=== PATIENT | female | born 1980 | race Hispanic/Latino ===

== ENCOUNTER 2017-08-03 21:29 | Emergency (ER) | payer OTHER ==
[2017-08-03] MEDS ORDERED: Meperidine PF 50 MG/ML Syringe IM ONE (22:07)
[2017-08-03] MEDS ORDERED: hydrOXYzine HCl 50 MG/ML SDV IM ONE (22:08)
--- NOTE | 2017-08-03 22:14 | EDM.PDOC ---
ED HPI GENERAL MEDICAL PROBLEM - General Chief Complaint: General Stated Complaint: Right knee injury Time Seen by Provider: 08/03/17 21:50 Source of Information: Reports: Patient History Limitations: Reports: No Limitations - History of Present Illness INITIAL COMMENTS - FREE TEXT/NARRATIVE: Patient is a 37-year-old female who was brought in by her to the ER for evaluation of right knee pain patient is states that she slipped on the ice at work tonight around 8:50 PM she complains of about a 5-6 out of 10 pain over the patella and soft tissue she also complains of pain in the proximal right femur. Onset: Today, Sudden Duration: Minutes:, Getting Worse Quality: Reports: Throbbing Severity: Moderate Improves with: Reports: None Worsens with: Reports: Cold Therapy Context: Reports: Trauma Right Knee Pain Score (Numeric/FACES): 6 - Related Data Allergies Allergy/AdvReac Type Severity Reaction Status Date / Time No Known Allergies Allergy Verified 08/03/17 21:31 Home Meds: Home Meds Ibuprofen 600 mg PO Q6HR PRN 08/03/17 [History] Social & Family History - Tobacco Use Smoking Status *Q: Never Smoker Second Hand Smoke Exposure: No - Caffeine Use Caffeine Use: Reports: Coffee - Recreational Drug Use Recreational Drug Use: No ED ROS GENERAL - Review of Systems Review Of Systems: See Below Constitutional: Reports: No Symptoms HEENT: Reports: No Symptoms Respiratory: Reports: No Symptoms Cardiovascular: Reports: No Symptoms Endocrine: Reports: No Symptoms GI/Abdominal: Reports: No Symptoms : Reports: No Symptoms Musculoskeletal: Reports: Leg Pain, Joint Pain (Right knee) Skin: Reports: Bruising (Right knee) Neurological: Reports: No Symptoms Psychiatric: Reports: No Symptoms Hematologic/Lymphatic: Reports: No Symptoms ED EXAM, GENERAL - Physical Exam Exam: See Below Exam Limited By: No Limitations General Appearance: Alert, WD/WN, No Apparent Distress Ears: Normal External Exam, Normal Canal, Hearing Grossly Normal, Normal TMs Ear Exam: Bilateral Ear: Auricle Normal, Canal Normal, TM normal Nose: Normal Inspection, Normal Mucosa, No Blood Throat/Mouth: Normal Inspection, Normal Lips, Normal Teeth, Normal Gums, Normal Oropharynx, Normal Voice, No Airway Compromise Head: Atraumatic, Normocephalic Neck: Normal Inspection, Supple, Non-Tender, Full Range of Motion Respiratory/Chest: No Respiratory Distress, Lungs Clear, Normal Breath Sounds, No Accessory Muscle Use, Chest Non-Tender Cardiovascular: Normal Peripheral Pulses, Regular Rate, Rhythm, No Edema, No Gallop, No JVD, No Murmur, No Rub GI/Abdominal: Normal Bowel Sounds, Soft, Non-Tender, No Organomegaly, No Distention, No Abnormal Bruit, No Mass (Female) Exam: Deferred Rectal (Female) Exam: Deferred Back Exam: Normal Inspection, Full Range of Motion, NT Extremities: Leg Pain (Right), Limited Range of Motion (Right) Neurological: Alert, Oriented, CN II-XII Intact, Normal Cognition, Normal Gait, Normal Reflexes, No Motor/Sensory Deficits Psychiatric: Normal Affect, Normal Mood Skin Exam: Warm, Dry, Intact, Normal Color, No Rash, Ecchymosis (Right knee) Lymphatic: No Adenopathy Course - Vital Signs Last Recorded V/S: Last Vital Signs Temp 97.4 F 08/03/17 21:31 Pulse 72 08/03/17 21:31 Resp 16 08/03/17 21:31 BP 113/62 08/03/17 21:31 Pulse Ox 98 08/03/17 21:31 - Orders/Labs/Meds Orders: Active Orders 24 hr Category Date Time Status Knee 3V Rt [CR] Stat Exams 08/03/17 22:04 Ordered Meperidine [Demerol] Med 08/03/17 22:07 Once 50 mg IM ONETIME ONE hydrOXYzine HCl [Vistaril] Med 08/03/17 22:08 Once 25 mg IM ONETIME ONE Departure - Departure Time of Disposition: 22:54 Disposition: Home, Self-Care 01 Condition: Good Clinical Impression: Right knee injury - Discharge Information Referrals: Angelina Smith NP [Primary Care Provider] - Care Plan Goals: Patient will be sent home with pain medication Tw[place] 5// one tablet every 6 hours if needed for pain control if continue with pain we will proceed with MRI of the knee x-ray revealed no fracture at this time - My Orders Last 24 Hours: My Active Orders 08/03/17 22:04 Knee 3V Rt [CR] Stat 08/03/17 22:07 Meperidine [Demerol] 50 mg IM ONETIME ONE 08/03/17 22:08 hydrOXYzine HCl [Vistaril] 25 mg IM ONETIME ONE - Assessment/Plan Last 24 Hours: My Active Orders 08/03/17 22:04 Knee 3V Rt [CR] Stat 08/03/17 22:07 Meperidine [Demerol] 50 mg IM ONETIME ONE 08/03/17 22:08 hydrOXYzine HCl [Vistaril] 25 mg IM ONETIME ONE
[2017-08-03] MEDS ORDERED: Acetaminophen/HYDROcodone 325-5 MG Tab PO ONE (22:49)
== END 2017-08-03 23:30 | disposition home or self-care (01) ==
LOC: LL.ED 21:29
DX: S80.01XA Contusion of right knee, initial encounter (principal); W00.0XXA Fall on same level due to ice and snow, initial encounter
CPT/HCPCS: 73552; 73562; 96372; 99283; J2175; J3410

== ENCOUNTER 2017-11-25 04:58 | Emergency (ER) | payer BC, OTHER ==
[2017-11-25] MEDS ORDERED: Sodium Chloride 0.9% 10 ML Syringe FLUSH PRN (05:24)
--- NOTE | 2017-11-25 05:24 | EDM.PDOC ---
ED HPI GENERAL MEDICAL PROBLEM - General Chief Complaint: General Stated Complaint: Light headness and dizziness Time Seen by Provider: 11/25/17 05:15 Source of Information: Reports: Patient, EMS, EMS Notes Reviewed, Old Records ( [facility] chart/EMR) History Limitations: Reports: No Limitations - History of Present Illness INITIAL COMMENTS - FREE TEXT/NARRATIVE: Patient was brought to the emergency room via ambulance with EMT/basic transfer with no treatment in route. At about 23:00 hours this evening the patient began experiencing some intermittent dizziness, nausea, and bilateral frontal headaches with no history of fall, injury, diplopia, visual changes, paresthesias, neurological deficits, or other complaints or injuries. She was able to continue her work until about 3 AM this morning. Patient does have a history of headaches in the past with additional history of anemia secondary to dysfunctional uterine bleeding as below. The patient denies any chest pain/ pressure, heart flutter, orthostasis, orthopnea, diaphoresis, paresthesias, recent decreased exercise tolerance, or any other anginal-type symptoms. No recent history of abdominal pain, heartburn, nausea, diarrhea, melena, gross hematochezia, or any food intolerance, including fatty foods, etc.. She denies any colic, gross hematuria, or UTI symptoms. The patient also denies any recent fever, cough, wheezing, dyspnea, etc.. Onset: Today, Gradual Onset Date: 11/24/17 Onset Time: 23:00 Duration: Getting Worse, Intermittent Quality: Reports: Same as Previous Episode, Throbbing Severity: Mild Improves with: Reports: Rest Worsens with: Reports: Movement Context: Reports: Other (As above). Denies: Sick Contact, Trauma Associated Symptoms: Reports: Headaches, Nausea/Vomiting (No emesis). 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 Denies: Allergic Rhinitis, Cataract, Glaucoma, Hard of Hearing, Macular Degeneration, Retinal Detachment Other HEENT History: She wears glasses Cardiovascular History: Reports: None. Denies: Afib, Aneurysm, Arrhythmia, Blood Clots/VTE/DVT, CAD, Heart Murmur, High Cholesterol, Hypertension, PA, PVD , Syncope Respiratory History: Reports: Intubation, Previous. Denies: Asthma, COPD, Intubation, Difficult, PE, Pneumothorax, Sleep Apnea Gastrointestinal History: Reports: None, Cholelithiasis. Denies: Celiac Disease , Fecal Incontinence, Gastritis, GERD, GI Bleed, Hepatitis, Irritable Bowel Syndrome, Jaundice, Pancreatitis, PUD Genitourinary History: Reports: None. Denies: Acute Renal Failure, Chronic Renal Insuffiency, Renal Calculus, STD, Urinary Incontinence, UTI, Recurrent YOUTH ADVOCATE History: Reports: Dysfunctional Uterine Bleeding, Fibroids, . Denies: Endometriosis, Spontaneous : 4 Para: 4 LMP (Approximate): Unknown Other OB/BYN History: Menopause secondary to dysfunctional uterine bleeding. C- sections 4 otherwise, Full term deliveries without complications during pregnancies or deliveries. Fibrocystic breast disease. Musculoskeletal History: Reports: None. Denies: Amputation, Arthritis, Back Pain, Chronic, Fracture, Fibromyalgia, Gout, Neck Pain, Chronic, Osteoarthritis , RA, SLE Neurological History: Reports: Headaches, Chronic. Denies: Cerebral Aneurysms, Concussion, CVA, Head Trauma, Migraines, MS, Parkinson's, Seizure, TIA Psychiatric History: Reports: None. Denies: Abuse, Victim of, ADD, ADHD, Addiction, Anxiety, Depression, Psych Hospitalization(s), PTSD, Suicide Attempt , Suicidal Ideation Endocrine/Metabolic History: Reports: Obesity/BMI 30+. Denies: Diabetes, Gestational, Diabetes, Type I, Diabetes, Type II, Diabetes Mellitus, Type 3c, Hypothyroidism, IDDM Hematologic History: Reports: Anemia, Iron Deficiency, Other (See Below). Denies: Blood Transfusion(s) Other Hematologic History: Anemia secondary to dysfunctional uterine bleeding Immunologic History: Reports: None. Denies: AIDS, HIV, SLE Oncologic (Cancer) History: Reports: None. Denies: Basal Cell Carcinoma, Hodgkin's Lymphoma, Leukemia, Lymphoma, Malignant Melanoma, Non-Hodgkin's Lymphoma, Squamous Cell Carcinoma Dermatologic History: Reports: None. Denies: Eczema, Psoriasis - Infectious Disease History Infectious Disease History: Reports: None. Denies: C-Difficile, Chicken Pox, Measles, Meningitis, Mononucleosis, MRSA, Mumps, Pertussis (Whooping Cough), Rheumatic Fever, Rubella, Scarlet Fever, Shingles, VRE - Past Surgical History Head Surgeries/Procedures: Reports: None HEENT Surgical History: Reports: Oral Surgery, Other (See Below). Denies: Adenoidectomy, Eye Surgery, Laser Surgery, LASIK, Myringotomy w Tube(s), Naso- Sinus Surgery, Tonsillectomy Other HEENT Surgeries/Procedures: [place] teeth extraction 4 in May 2017 Cardiovascular Surgical History: Reports: None. Denies: Varicose Respiratory Surgical History: Reports: None. Denies: Thoracentesis GI Surgical History: Reports: Cholecystectomy, Other (See Below). Denies: Appendectomy, Colonoscopy, EGD, Hernia, Abdominal, Hernia, Inguinal, Hernia Repair/Other Other GI Surgeries/Procedures: Open cholecystectomy at 5 months gestation in 2002 Female Surgical History: Reports: Breast Biopsy, Section, Hysterectomy, Tubal Ligation, Other (See Below). Denies: D&C, Salpingo- Oophorectomy Other Female Surgeries/Procedures: Bilateral tubal ligation 2006. Complete hysterectomy secondary to dysfunctional uterine bleeding in 2015. Left breast cyst aspiration in 2016. Fine-needle aspiration biopsy of the right breast on 10/02/02 with subsequent excision of a benign right breast mass on 02/18/03. Endocrine Surgical History: Reports: None. Denies: Thyroid Biopsy Neurological Surgical History: Reports: None. Denies: C-Spine, Discectomy, Laminectomy, Lumbar Spine, Sacral Spine, Spinal Fusion, Vertebroplasty Musculoskeletal Surgical History: Reports: None. Denies: Arthroscopic Procedure , Carpal Tunnel, Ganglion Cyst, Joint Replacement, ORIF, Shoulder Surgery Oncologic Surgical History: Reports: None Dermatological Surgical History: Reports: None - Past Imaging History Past Imaging History: Reports: Ultrasound (OB ultrasounds) Social & Family History - Tobacco Use Smoking Status *Q: Never Smoker Tobacco Use Within Last Twelve Months: No Used Tobacco, but Quit: No Smoking Cessation Information Provided To Patient: No Second Hand Smoke Exposure: No Second Hand Smoke Education Provided: No - Caffeine Use Caffeine Use: Reports: Coffee (1cup 2 times per week), Soda (1 soda 3 times per week), Tea (1 glass per day). Denies: Energy Drinks - Alcohol Use Alcohol Use History: No Days Per Week of Alcohol Use: 0 Number of Drinks Per Day: 0 Number of Drinks Per Day Comment: No previous DWIs, problems with alcohol abuse , etc. Total Drinks Per Week: 0 Alcohol Use in Last Twelve Months: No - Recreational Drug Use Recreational Drug Use: No Drug Use in Last 12 Months: No Recreational Drug Type: Denies: Amphetamines (Speed), Cocaine, Heroin, Inhalants (Glues, Solvents, Aerosols), LSD (Acid), Marijuana/Hashish, Methamphetamine, Morphine, Oxycodone - Sexual History Sexual History: Reports: Single Partner - Living Situation & Occupation Living situation: Reports: (April 1996. 4 children), with Family Occupation: Employed ([employer]) ED ROS GENERAL - Review of Systems Review Of Systems: ROS reveals no pertinent complaints other than HPI. ED EXAM, GENERAL - Physical Exam Exam: See Below Exam Limited By: No Limitations General Appearance: Alert, WD/WN, No Apparent Distress Eye Exam: Bilateral Eye: EOMI, Normal Fundi, Normal Inspection (No nystagmus), PERRL Ears: Normal External Exam, Normal Canal, Hearing Grossly Normal, Normal TMs, Other (Vertigo with head movement) Nose: Normal Inspection, Normal Mucosa, No Blood Throat/Mouth: Normal Inspection, Normal Lips, Normal Teeth, Normal Gums, Normal Oropharynx, Normal Voice, No Airway Compromise. No: Dysphagia, Perioral Cyanosis Head: Atraumatic, Normocephalic. No: Facial Swelling, Facial Tenderness, Sinus Tenderness Neck: Normal Inspection, Supple, Non-Tender, Full Range of Motion. No: Carotid Bruit, Lymphadenopathy (L), Lymphadenopathy (R), Thyromegaly Respiratory/Chest: No Respiratory Distress, Lungs Clear, Normal Breath Sounds, No Accessory Muscle Use, Chest Non-Tender. No: Pleural Rub, Retractions Cardiovascular: Normal Peripheral Pulses, Regular Rate, Rhythm, No Edema, No Gallop, No JVD, No Murmur, No Rub. No: Gallop/S3, Gallop/S4, Friction Rub Peripheral Pulses: 2+: Radial (L), Radial (R) GI/Abdominal: Normal Bowel Sounds, Soft, Non-Tender, No Organomegaly, No Distention, No Abnormal Bruit, No Mass, Other (obese). No: Guarding (Female) Exam: Deferred Rectal (Female) Exam: Deferred Back Exam: Normal Inspection, Full Range of Motion. No: CVA Tenderness (L), CVA Tenderness (R) Extremities: Normal Inspection, Normal Range of Motion, Non-Tender, No Pedal Edema, Normal Capillary Refill. No: Freddy's Sign Neurological: Alert, Oriented, CN II-XII Intact, Normal Cognition, Normal Gait, No Motor/Sensory Deficits, Other (No Clinical orthostasis) Psychiatric: Normal Affect, Normal Mood Skin Exam: Warm, Dry, Intact, Normal Color, No Rash. No: Diaphoretic, Pallor, Wound/Incision Lymphatic: No Adenopathy EKG INTERPRETATION EKG Date: 11/25/17 Time: 04:57 Rhythm: NSR Rate (Beats/Min): 70 [place]: Normal (Neutral cardiac axis) P-Wave: Present QRS: Normal (QRS interval 0.09 seconds) ST-T: Normal QT: Normal [place]/PQ Interval: 0.17 seconds Comparison: NA - No Prior EKG EKG Interpretation Comments: No acute ischemic changes Course - Vital Signs Last Recorded V/S: Last Vital Signs Temp 36.7 C 11/25/17 05:11 Pulse 68 11/25/17 05:24 Resp 18 11/25/17 05:24 BP 138/72 11/25/17 05:24 Pulse Ox 100 11/25/17 05:24 Vital Signs - 24 hr 11/25/17 11/25/17 05:11 05:24 Temperature [ 36.7 C Temporal] Pulse, 71 68 Peripheral [ Right Pulse Oximetry] Respiratory 16 18 Rate Blood Pressure 128/75 138/72 [Right Upper Arm] O2 Sat by Pulse 100 100 Oximetry - Orders/Labs/Meds Orders: Active Orders 24 hr Category Date Time Status Cardiac Monitoring [RC] . DIRECTED Care 11/25/17 05:24 Active EKG Documentation Completion [RC] ASDIRECTED Care 11/25/17 05:24 Active Peripheral IV Care [RC] . DIRECTED Care 11/25/17 05:24 Active Pulse Oximetry [RC] CONTINUOUS Care 11/25/17 05:24 Active Up With Assistance [RC] PFP Care 11/25/17 05:24 Active Vital Signs [RC] PFP Care 11/25/17 05:24 Active Nothing per Oral Now Diet [DIET] Diet 11/25/17 Breakfast Active Sodium Chloride 0.9% [Saline Flush] Med 11/25/17 05:24 Active 10 ml FLUSH ASDIRECTED PRN Obtain Past Medical Record [OM.PC] Urgent Oth 11/25/17 05:24 Active Peripheral IV Insertion Adult [OM.PC] Stat Oth 11/25/17 05:24 Ordered Resuscitation Status Stat Resus Stat 11/25/17 05:24 Ordered EKG 12 Lead [EK] Stat Ther 11/25/17 05:24 Ordered Medication Orders Sodium Chloride (Saline Flush) 10 ml FLUSH ASDIRECTED PRN PRN Reason: Keep Vein Open Labs: Laboratory Tests 11/25/17 11/25/17 11/25/17 Range/Units 05:15 05:15 05:15 WBC 6.4 (4.0-10.2) K/uL RBC 4.84 (3.77-5.09) M/uL Hgb 12.8 (11.7-15.5) g/dL Hct 39.1 (34.0-46.0) % MCV 80.8 L (84.0-98.0) fL MCH 26.4 L (28.2-33.3) pg MCHC 32.7 (31.7-36.0) g/dL RDW 14.2 H (11.2-14.1) % Plt Count 189 (150-350) K/uL Neut % (Auto) 50.0 (45.0-80.0) % Lymph % (Auto) 33.3 (10.0-50.0) % [place] % (Auto) 9.5 (2.0-14.0) % Eos % (Auto) 6.6 H (0.0-5.0) % Baso % (Auto) 0.6 (0.0-2.0) % Neut # (Auto) 3.20 (1.40-7.00) K/uL Lymph # (Auto) 2.13 (0.50-3.50) K/uL [place] # (Auto) 0.61 (0.00-1.00) K/uL Eos # (Auto) 0.42 (0.00-0.50) K/uL Baso # (Auto) 0.04 (0.00-0.20) K/uL PT 10.0 (9.8-11.7) SEC INR 0.9 APTT 24.6 (22.1-29.8) SEC D-Dimer, Quantitative 327 (0-400) ng/mL Sodium (136-145) mmol/L Potassium (3.5-5.1) mmol/L Chloride (98-107) mmol/L Carbon Dioxide (21.0-32.0) mmol/L BUN (7-18) mg/dL Creatinine (0.51-1.17) mg/dL Est Cr Clr Drug Dosing mL/min Estimated GFR (MDRD) mL/min Glucose (74-106) mg/dL Lactic Acid (0.4-2.0) mmol/L Calcium (8.5-10.1) mg/dL Magnesium (1.8-2.4) mg/dL Total Bilirubin (0.2-1.0) mg/dL AST (15-37) U/L ALT (12-78) U/L Alkaline Phosphatase (46-116) IU/L Total Protein (6.4-8.2) g/dL Albumin (3.4-5.0) g/dL TSH, Ultra Sensitive (0.358-3.740) mIU/mL 11/25/17 11/25/17 Range/Units 05:15 05:15 WBC (4.0-10.2) K/uL RBC (3.77-5.09) M/uL Hgb (11.7-15.5) g/dL Hct (34.0-46.0) % MCV (84.0-98.0) fL MCH (28.2-33.3) pg MCHC (31.7-36.0) g/dL RDW (11.2-14.1) % Plt Count (150-350) K/uL Neut % (Auto) (45.0-80.0) % Lymph % (Auto) (10.0-50.0) % [place] % (Auto) (2.0-14.0) % Eos % (Auto) (0.0-5.0) % Baso % (Auto) (0.0-2.0) % Neut # (Auto) (1.40-7.00) K/uL Lymph # (Auto) (0.50-3.50) K/uL [place] # (Auto) (0.00-1.00) K/uL Eos # (Auto) (0.00-0.50) K/uL Baso # (Auto) (0.00-0.20) K/uL PT (9.8-11.7) SEC INR APTT (22.1-29.8) SEC D-Dimer, Quantitative (0-400) ng/mL Sodium 139 (136-145) mmol/L Potassium 3.7 (3.5-5.1) mmol/L Chloride 105 (98-107) mmol/L Carbon Dioxide 24.9 (21.0-32.0) mmol/L BUN 19 H (7-18) mg/dL Creatinine 0.71 (0.51-1.17) mg/dL Est Cr Clr Drug Dosing 92.77 mL/min Estimated GFR (MDRD) > 60 mL/min Glucose 110 H (74-106) mg/dL Lactic Acid 1.0 (0.4-2.0) mmol/L Calcium 8.6 (8.5-10.1) mg/dL Magnesium 1.8 (1.8-2.4) mg/dL Total Bilirubin 0.4 (0.2-1.0) mg/dL AST 34 (15-37) U/L ALT 40 (12-78) U/L Alkaline Phosphatase 72 (46-116) IU/L Total Protein 7.7 (6.4-8.2) g/dL Albumin 3.4 (3.4-5.0) g/dL TSH, Ultra Sensitive 1.432 (0.358-3.740) mIU/mL Meds: Medications Generic Name Dose Route Start Last Admin Trade Name Freq PRN Reason Stop Dose Admin Sodium Chloride 10 ml 11/25/17 05:24 Saline Flush FLUSH ASDIRECTED PRN Keep Vein Open Discontinued Medications Generic Name Dose Route Start Last Admin Trade Name Freq PRN Reason Stop Dose Admin Methylprednisolone Acetate 80 mg 11/25/17 06:03 11/25/17 06:09 Depo-Medrol IM 11/25/17 06:04 80 mg ONETIME ONE Administration - Radiology Interpretation Free Text/Narrative:: clinical research monitor shows normal sinus rhythm in the 60s to 70s with no ectopy or arrhythmia Departure - Departure Time of Disposition: 06:20 Disposition: Home, Self-Care 01 Condition: Good Clinical Impression: Labyrinthitis, Chronic headaches, Obesity (BMI 35.0-39.9 without comorbidity), Microcytic anemia - Discharge Information Prescriptions: Meclizine [Antivert] 25 mg PO Q6H PRN #30 tab PRN Reason: Dizziness Instructions: Heart-Healthy Eating Plan, [id number], Labyrinthitis, Easy-to- Read, Fat and Cholesterol Restricted Diet, [id number] Forms: ED Department Discharge Additional Instructions: 1. Follow up with your regular provider in 10-14 days as needed, if symptoms persist. Bring these discharge instructions with you to that visit.. 2. Tylenol 650 mg by mouth every 4 hours and/or OTC ibuprofen 2-3 tabs by mouth every 6 hours with food as directed./needed. 3. Work excuse- See Form 4. Follow-up precautions with your dizziness with advanced activity as tolerated 5. Sedation and dry mouth precautions with meclizine 6. Weight loss and exercise in moderation as discussed. Follow low-fat, low- cholesterol diet as provided. Discuss possible lipid profile with your regular provider in the near future. - Problem List & Annotations (1) Labyrinthitis SNOMED Code(s): 50302240 Code(s): H83.09 - LABYRINTHITIS, UNSPECIFIED EAR Status: Acute Priority: High Annotation/Comment:: Probable viral labyrinthitis by history and clinical exam. Symptomatic relief as per discharge instructions. IM Depo-Medrol given in the emergency room. Qualifiers: Laterality: unspecified laterality Qualified Code(s): H83.09 - Labyrinthitis, unspecified ear (2) Chronic headaches SNOMED Code(s): 712847826 Code(s): R51 - HEADACHE Status: Acute Priority: High Onset Date: ~11/24 Annotation/Comment:: Headaches typical of her chronic headaches in the past. She does not wish to have IM Toradol at this time. Symptomatic relief as per discharge instructions. Qualifiers: Headache type: unspecified Intractability: not intractable Qualified Code (s): R51 - Headache (3) Microcytic anemia SNOMED Code(s): 287572914 Code(s): D50.9 - IRON DEFICIENCY ANEMIA, UNSPECIFIED Status: Chronic Priority: Medium Annotation/Comment:: History of microcytic anemia in the past with persistent borderline microcytosis but no significant anemia. Observe for now. (4) Obesity (BMI 35.0-39.9 without comorbidity) SNOMED Code(s): 585692167, 052692985 Code(s): E66.9 - OBESITY, UNSPECIFIED Status: Chronic Priority: Medium Annotation/Comment:: Weight loss in moderation advisable. Patient provided information concerning low-fat, low-cholesterol diet. - Problem List Review Problem List Initiated/Reviewed/Updated: Yes - My Orders Last 24 Hours: My Active Orders 11/25/17 05:24 Cardiac Monitoring [RC] . DIRECTED EKG Documentation Completion [RC] ASDIRECTED Peripheral IV Care [RC] . DIRECTED Pulse Oximetry [RC] CONTINUOUS Up With Assistance [RC] PFP Vital Signs [RC] PFP Sodium Chloride 0.9% [Saline Flush] 10 ml FLUSH ASDIRECTED PRN Obtain Past Medical Record [OM.PC] Urgent Peripheral IV Insertion Adult [OM.PC] Stat Resuscitation Status Stat EKG 12 Lead [EK] Stat 11/25/17 Breakfast Nothing per Oral Now Diet [DIET] - Assessment/Plan Last 24 Hours: My Active Orders 11/25/17 05:24 Cardiac Monitoring [RC] . DIRECTED EKG Documentation Completion [RC] ASDIRECTED Peripheral IV Care [RC] . DIRECTED Pulse Oximetry [RC] CONTINUOUS Up With Assistance [RC] PFP Vital Signs [RC] PFP Sodium Chloride 0.9% [Saline Flush] 10 ml FLUSH ASDIRECTED PRN Obtain Past Medical Record [OM.PC] Urgent Peripheral IV Insertion Adult [OM.PC] Stat Resuscitation Status Stat EKG 12 Lead [EK] Stat 11/25/17 Breakfast Nothing per Oral Now Diet [DIET] Assessment:: As above Plan: As above. Extensive precautions were given to the patient and her , who are in agreement with the treatment plan. See Patient Instructions for further treatment and plan.
[2017-11-25 05:56] LABS: CHLORIDE,CL 105 mmol/L (98-107); SODIUM,NA 139 mmol/L (136-145)
[2017-11-25] MEDS ORDERED: methylPREDNISolone Acetate 80 MG/ML SDV IM ONE (06:03)
== END 2017-11-25 06:20 | disposition home or self-care (01) ==
LOC: LL.ED 04:58
DX: H83.09 Labyrinthitis, unspecified ear (principal); R51 Headache; D50.9 Iron deficiency anemia, unspecified; E66.9 Obesity, unspecified; Z79.899 Other long term (current) drug therapy; Z68.37 Body mass index [BMI] 37.0-37.9, adult
CPT/HCPCS: 36000; 36415; 80053; 83605; 83735; 84443; 85025; 85379; 85610; 85730; 93005; 96372; 99284; J1040

== ENCOUNTER 2018-02-17 02:24 | Emergency (ER) | payer BC, OTHER ==
--- NOTE | 2018-02-17 03:06 | EDM.PDOC ---
ED HPI GENERAL MEDICAL PROBLEM - General Chief Complaint: Upper Extremity Injury/Pain Stated Complaint: Left wrist pain Time Seen by Provider: 02/17/18 02:45 Source of Information: Reports: Patient History Limitations: Reports: No Limitations - History of Present Illness INITIAL COMMENTS - FREE TEXT/NARRATIVE: Patient felt small popping sensation lateral left wrist while trying to use her jig at work tonight. This was followed by developing some pain/discomfort in left lateral wrist area. No numbness/tingling/weakness. No previous history of injury to area. No other complaints. Works at [employer]. 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 [No Known Home Meds] 02/17/18 [History] Past Medical History HEENT History: Reports: Impaired Vision, Sinusitis Other HEENT History: She wears glasses Cardiovascular History: Reports: None Respiratory History: Reports: Intubation, Previous Gastrointestinal History: Reports: None, Cholelithiasis Genitourinary History: Reports: None REAL ESTATE PHOTOGRAPHER History: Reports: Dysfunctional Uterine Bleeding, Fibroids, Other REAL ESTATE PHOTOGRAPHER History: Menopause secondary to dysfunctional uterine bleeding. C- sections 4 otherwise, Full term deliveries without complications during pregnancies or deliveries. Fibrocystic breast disease. 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 Immunologic History: Reports: None Oncologic (Cancer) History: Reports: None Dermatologic History: Reports: None - Infectious Disease History Infectious Disease History: Reports: None - Past Surgical History Head Surgeries/Procedures: Reports: None HEENT Surgical History: Reports: Oral Surgery, Other (See Below) Other HEENT Surgeries/Procedures: [place] teeth extraction 4 in May 2017 Cardiovascular Surgical History: Reports: None Respiratory Surgical History: Reports: None GI Surgical History: Reports: Cholecystectomy, Other (See Below) Other GI Surgeries/Procedures: Open cholecystectomy at 5 months gestation in 2002 Female Surgical History: Reports: Breast Biopsy, Section, Hysterectomy, Tubal Ligation, Other (See Below) Other Female Surgeries/Procedures: Bilateral tubal ligation 2006. Complete hysterectomy secondary to dysfunctional uterine bleeding in 2016. Left breast cyst aspiration in 2017. Fine-needle aspiration biopsy of the right breast on 10/02/02 with subsequent excision of a benign right breast mass on 02/18/03. Endocrine Surgical History: Reports: None Neurological Surgical History: Reports: None Musculoskeletal Surgical History: Reports: None Oncologic Surgical History: Reports: None Dermatological Surgical History: Reports: None - Past Imaging History Past Imaging History: Reports: Ultrasound (OB ultrasounds) Social & Family History - Tobacco Use Smoking Status *Q: Never Smoker - Caffeine Use Caffeine Use: Reports: None - Recreational Drug Use Recreational Drug Use: No - Sexual History Sexual History: Reports: Single Partner - Living Situation & Occupation Living situation: Reports: (April 1996. 4 children), with Family Occupation: Employed ([employer]) Review of Systems - Review of Systems Review Of Systems: ROS reveals no pertinent complaints other than HPI. ED EXAM, GENERAL - Physical Exam Exam: See Below Exam Limited By: No Limitations General Appearance: Alert, No Apparent Distress, Obese Eye Exam: Bilateral Eye: EOMI, PERRL Head: Atraumatic, Normocephalic Neck: Supple Respiratory/Chest: No Respiratory Distress Extremities: Normal Range of Motion, Normal Capillary Refill, Other (mild tenderness with palpation lateral left wrist. No swelling or deformity. No redness. Good grasp. Normal ROM in wrist and fingers. ) Course - Vital Signs Last Recorded V/S: Last Vital Signs Temp 36.6 C 02/17/18 02:42 Pulse 75 02/17/18 02:42 Resp 16 02/17/18 02:42 BP 109/54 L 02/17/18 02:42 Pulse Ox 100 02/17/18 02:42 - Orders/Labs/Meds Orders: Active Orders 24 hr Category Date Time Status Wrist Comp Min 3V Lt [CR] Stat Exams 02/17/18 02:36 Taken - Radiology Interpretation Free Text/Narrative:: Left wrist films unremarkable. - Re-Assessments/Exams Free Text/Narrative Re-Assessment/Exam: 02/17/18 03:10 Suspect overuse injury/soft tissue injury involving tendon or ligament. Patient placed in premade velcro splint for comfort and protection. Placed on work restriction. To follow up with primary provider Tuesday for recheck and further restrictions as needed. Departure - Departure Time of Disposition: 03:04 Disposition: Home, Self-Care 01 Condition: Good Clinical Impression: Left wrist injury Qualifiers: Encounter type: initial encounter Qualified Code(s): S69.92XA - Unspecified injury of left wrist, hand and finger(s), initial encounter - Discharge Information *PRESCRIPTION DRUG MONITORING PROGRAM REVIEWED*: Not Applicable *COPY OF PRESCRIPTION DRUG MONITORING REPORT IN PATIENT GOVIND: Not Applicable Instructions: Wrist Splint, Adult, [id number] Referrals: Angelina Smith NP [Primary Care Provider] - Forms: ED Department Discharge Additional Instructions: Wear splint until seen by primary provider on Tuesday morning. Further restrictions can be considered at that time as needed. Rest/ice sore area on wrist. OK to take Tylenol or Ibuprofen or Aleve to help with pain. - My Orders Last 24 Hours: My Active Orders 02/17/18 02:36 Wrist Comp Min 3V Lt [CR] Stat - Assessment/Plan Last 24 Hours: My Active Orders 02/17/18 02:36 Wrist Comp Min 3V Lt [CR] Stat
== END 2018-02-17 03:15 | disposition home or self-care (01) ==
LOC: LL.ED 02:24
DX: S69.92XA Unspecified injury of left wrist, hand and finger(s), initial encounter (principal); X50.9XXA Other and unspecified overexertion or strenuous movements or postures, initial encounter; Y99.0 Civilian activity done for income or pay
CPT/HCPCS: 73110-LT; 99283